=== PATIENT | male | born 1955 | race Caucasian/White ===

== ENCOUNTER 2025-04-22 18:01 | Inpatient (IN) | payer BC, MEDICARE, SELFPAY ==
[2025-04-22] VITALS (20 sets, daily range): BP systolic 108–159; BP diastolic 71–96; BMI 33.9; BMI 33.6
[2025-04-22 13:38] LABS: Hematocrit 43.9 % (39.0-52.0); Hemoglobin 14.8 g/dL (13.0-18.0); Mean Corp Hgb Conc. 33.7 g/dL (33.0-37.0); Mean Corpuscular Volume 84.1 fL (80.0-94.0); Nucleated Red Blood Cells % 0 % (-); Platelet Count 234 10^3/uL (130-400); Red Cell Dist. Width 13.5 % (11.5-14.5)
[2025-04-22 13:58] LABS: ALT (SGPT) 32 U/L (0-50); AST (SGOT) 25 U/L (17-59); Albumin 4.8 g/dl (3.5-5.0); Alkaline Phosphatase 46 U/L (38-126); Blood Urea Nitrogen 18 mg/dl (9-20); Calcium 9.2 mg/dl (8.4-10.2); Carbon Dioxide 24 mmol/L (22-30); Chloride 107 mmol/L (98-107); Glucose 128 mg/dl (70-99); Potassium 4.3 mmol/L (3.5-5.1); Sodium 138 mmol/L (135-145); Total Protein 7.4 g/dl (6.3-8.2); eGFR > 60.00
[2025-04-22 14:11] LABS: Troponin I 0.030 ng/ml
--- NOTE | 2025-04-22 16:25 | CON.CAR ---
Addendum entered and electronically signed by Glen Guevara MD 04/22/25 21:14:
Pleasant 69-year-old man with history of prior PCI admitted now with exertional chest discomfort, nonspecific ST changes and troponin of 0.035. [address] Bautista, had unremarkable echo and stress test earlier this year for symptoms of chest
discomfort. Over the last 2 weeks classic exertional chest discomfort has occurred, with mild persistent discomfort at rest here in the emergency department. Some relief with nitroglycerin.
PMH: CAD, drug-eluting stent mid to distal RCA 2018, hypertension, hyperlipidemia, obstructive sleep apnea, hyperglycemia, remote postoperative pulmonary embolism
Current meds:IV nitroglycerin, IV heparin, aspirin 81 mg a day, carvedilol 3.125 mg twice daily, rosuvastatin 5 mg at bedtime, amlodipine 10 mg a day, losartan 100 mg daily and ezetimibe 3 days a week
Rest of history as below. Reviewed in detail and agree, unless otherwise specified
150/86, pulse 64, respiratory rate 18, afebrile, head neck exam unremarkable, lungs are clear, regular rate and rhythm without murmurs abdomen benign extremities without clubbing cyanosis or edema, distal pulses intact's
ECG sinus rhythm, nonspecific inferolateral ST segment changes, LVH
Hemoglobin 14.8, BUN and creatinine are 18 and 1, glucose 128, troponin 0.035
Impression:
Suspected ACS
CAD status post RCA PCI 2018
Hyperglycemia
Hypertension
Hyperlipidemia
Obstructive sleep apnea
Remote pulmonary embolus
Plan:
He presents with symptoms strongly suggestive of crescendo angina/ACS.
Agree with treatment with IV nitroglycerin and IV heparin. Continue beta-marisol, antihypertensives, aspirin, statin
Given his presentation, best management strategy will likely be referral to the [facility] in the morning. Await echocardiogram, trend troponin and follow EKG.
Original Note:
Consultation
Consultation Request
Date/Time Consultation Requested: 04/22/2025, 1625
Date/Time Consultation Performed: 04/22/2025, 162
Requesting Provider: Dr. Velasquez
Performing Provider: JACK Anders for Dr. Guevara
Reason for Consultation: Chest pain
Medical History
-
Chief Complaint: Chest pain
History of Present Illness:
69-year-old male with past medical history hypertension, hyperlipidemia, prediabetes, CAD status post PCI with GUSTABO to the mid to distal RCA in September 2017 with residual small branch vessel coronary artery disease, sleep apnea, appendectomy
complicated by postop PE 2003, diverticulosis presents to ED today with 2-week history of exertional chest pain. Describes 6 out of 10 chest pain that occurs with activities such as walking up a flight of steps or walking at a fast pace. Pain
radiates through left chest sometimes to left shoulder. No associated symptoms. Pain would resolve with rest. Today after walk he had pain that did not resolve with rest and took 2 sublingual nitroglycerin and presented to [facility].
Currently having 2-3 out of 10 chest pain. 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
ED workup:
Troponin 0.03
BUN/creatinine 18/1.0, NA 138, K4.3, hemoglobin 14.8
EKG: Normal sinus rhythm ST-T wave abnormality inferior leads and V4-V6. When compared to EKG from office visit with Dr. Bautista 12/25/2024, similar ST abnormalities.
Past medical history:
CAD status post PCI/GUSTABO to mid to distal RCA 09/2017, has residual small branch vessel disease
Hypertension
Hyperlipidemia
Sleep apnea on CPAP
Prediabetes
Appendectomy complicated by postop PE in 2003
Diverticulosis
Patient follows with Dr. Jagdish Bautista.
He had exercise nuclear stress test 08/29/2024 that showed normal myocardial perfusion scan with normal wall motion, EF 63%, exercised 9 minutes on Ok protocol.
Echo 09/10/2024: Normal LV/RV function, LVEF 60%, borderline LVH, mild AI trivial TR with mild increase in RV systolic pressure.
Past Medical History
Past Medical History: Other (As above)
Past Surgical History: Other (Appendectomy, cardiac cath, spinal surgery 08/2021, deviated septum 02/2021)
Social History
Tobacco: Non-Smoker
Alcohol: Occasional (Rare)
Personal:
Living: With Family
Employment: Employed
Family History
Family History: Other (Father had heart valve surgery in his 80s. No history of premature CAD)
Allergies / Home Medications
�Medication �Instructions �Recorded �Confirmed �Type
rosuvastatin 5 mg tablet (Crestor) 5 mg PO DAILY 04/22/25 04/22/25 History
Review of Systems
-
History Source: Patient
All other systems: Negative unless noted
Physical Exam
Vital Signs
Temp Pulse Resp BP Pulse Ox
97.8 F 72 18 157/92 97
04/22/25 13:10 04/22/25 13:10 04/22/25 13:10 04/22/25 13:10 04/22/25 13:10
Lab Results
04/22/25 13:28
04/22/25 13:28
Troponin I 0.030 ng/ml 04/22/25 13:28
GEN: No distress, awake, Ox3
HEENT: supple, anicteric, mmm
LUNGS: CTA, no wheezes/rales
CV: Reg, S1/S2, no murmur
ABD: soft, BS+, NT/ND
EXT: No edema
NEURO: Gross non-focal
SKIN: No rash
Impression / Plan
-
PCP:Elizabeth Rowell
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
Previous cardiovascular testing:
Left heart cath 10/19/2017 at [facility]:
PCI with GUSTABO to mid to distal RCA, reducing stenosis from 90% to 0%. 50 to 60% disease in RCA.
LAD 50% proximal to mid stenosis
D2 70% stenosis
Mild disease in other areas
Normal LVEDP
Exercise nuclear stress test 08/29/2024 that showed normal myocardial perfusion scan with normal wall motion, EF 63%, exercised 9 minutes on Ok protocol.
Echo 09/10/2024: Normal LV/RV function, LVEF 60%, borderline LVH, mild AI trivial TR with mild increase in RV systolic pressure.
Plan:
69-year-old male with PMH HTN, hyperlipidemia, prediabetes, CAD status post PCI with GUSTABO to the mid to distal RCA in September 2017 with residual small branch vessel coronary artery disease, sleep apnea on CPAP, appendectomy complicated by postop PE
2003, diverticulosis presents to ED today with 2-week history of exertional left-sided chest pain resolved with rest, sometimes radiates to left shoulder, no associated symptoms Today after walk he had pain that did not resolve with rest and took 2
sublingual nitroglycerin and presented to [facility].
Currently having 2-3 out of 10 chest pain. Initial troponin 0.03
-Admit to IVU
-Trend troponin and EKG
-Received ASA 243 mg in ED
-Start IV heparin
-Start IV nitro and titrate for pain relief
-Keep n.p.o., for possible cath in a.m.
-Check echo
-Continue statin and Zetia, only takes Zetia 3 times a week. Goal LDL less than 55
-Continue prior to admission carvedilol, amlodipine, losartan HCT
-Continue CPAP for obstructive sleep apnea
Discussed with ED staff, patient and
Data Reviewed
-
EKG: Tracing Personally Visualized and interpreted
Labs: Labs Reviewed by me
Old Records: Reviewed
--- NOTE | 2025-04-22 16:32 | ED.GENMED ---
History of Present Illness
<Fredy Velasquez PA-C - Last Filed: 04/22/25 19:12>
General
Chief Complaint: Breathing Problem
Time Seen by Provider: 04/22/25 15:56
History of Present Illness
History of Present Illness:
69-year-old male with history of coronary artery disease status post stent x 1 (2018 at [facility]), hypertension presents to the emergency department for evaluation of exertional chest pain over the past 2 weeks. States that he did not short
distances in the [place] without much pain but if he increases his speed pain will begin. Typically resolves after resting for a few minutes however today it seems to last longer at rest that I previously had. Currently rated 6 out of 10. He did
take nitro x 2 without improvement. Sees cardiology through [facility] states that he had a normal stress test and normal echocardiogram performed earlier this year, I do have results available for the echo that was done in August.
Review of Systems
<Fredy Vleasquez PA-C - Last Filed: 04/22/25 19:12>
Review of Systems
Allergies reviewed?: Yes
All Other Systems: ROS reviewed and negative except as documented in HPI and ROS
Phy Exam
<Fredy Velasquez PA-C - Last Filed: 04/22/25 19:12>
Physical Exam
Physical Exam:
GEN: Well appearing, NAD, WDWN
HEENT: Oral mucosa moist, no scleral icterus
Cardiac: Regular rate and rhythm, no murmur
Lung: No respiratory distress, no tachypnea
MSK: No gross deformity or injuries
Skin: Good color, no pallor or jaundice, no rashes
Neuro: AO x3, moves all extremities freely
Psych: Calm, cooperative
Scores
<Fredy Velasquez PA-C - Last Filed: 04/22/25 19:12>
Heart Failure Risk
Heart Failure Risk Score: Not Applicable
Course
<Fredy Velasquez PA-C - Last Filed: 04/22/25 19:12>
Orders/Labs/Results
Orders:
Orders
04/22/25 13:07
Electrocardiogram (*1) Urgent
Reason for Study: Shortness of Breath
EKG- Treatment ONCE
04/22/25 13:28
CMP [Comprehensive Metabolic Panel] Urgent
Complete Blood Count/With Diff Urgent
Troponin I Urgent
04/22/25 16:15
Nitroglycerin 100 mg/250 ml [Nitroglycerin Premix] 100 mg in 250 ml IV PER PROTOCOL
Initial dose in mcg/min, then titrate:: 20
Titrate to keep:: Chest Pain Free
Titrate by mcg/min:: 5 mcg/min, may increase by 10 mcg/min if dose > 20 mcg/min
Frequency of titrations (minutes):: every 3-5 minutes
Maximum dose in mcg/min:: 200
Begin to taper infusion when:: Remained at goal for 2hrs
Taper by mcg/min:: 5 mcg/min
Frequency of taper (minutes) if patient maintains goal:: 30
Taper to off?: Yes
If infusion off & no longer maintaining goal:: Contact Provider
04/22/25 16:26
CARDIOLOGY CONSULT Urgent
Consulting Provider: Glen Guevara
Was physician already notified: Yes
04/22/25 16:27
Electrocardiogram (*1) Urgent
Reason for Study: Chest Pain
04/22/25 16:28
EKG- Treatment ONCE
04/22/25 16:33
Troponin I Urgent
04/22/25 16:39
Aspirin Chewable [Low Strength Aspirin] 243 mg PO NOW STA
04/22/25 16:47
Heparin 4,000 units IV NOW STA
Nursing to Place Non Medication Order As Directed
Physician Order: PTT 6 hours after initial start of Heparin infusion
Above order entered?: Yes
04/22/25 17:00
Heparin 43842 Units/250 ml 25,000 units in 250 ml IV PER PROTOCOL
Weight to be used for heparin protocol in kilograms (kg):: 116.4
Protocol:: Cardiac Tx/Acute Coronary
PTT Goal Range to be used:: PTT 73 to 111 seconds
Order type:: Initial
INITIAL Infusion Dose (UNITS/KG/hr) & then follow protocol:: 12 units/kg/hr
Infusion Dose in UNITS/hr & then follow protocol (UNITS/hr):: 1,000
INFUSION RATE in mL/hr & then follow protocol (mL/hr):: 10
PTT less than or equal to 64 seconds:: Increase rate by 200 units/hr (+ 2 mL/hr)
PTT 64.1 to 72.9 seconds:: Increase rate by 100 units/hr (+ 1 mL/hr)
PTT 73 to 111 seconds:: Target Range. No change in rate.
PTT 111.1 to 130.9 seconds:: Decrease rate by 100 units/hr (- 1 mL/hr)
PTT 131 to 199.9 seconds:: HOLD for 1 hr. Then decrease rate by 200 units/hr (- 2 mL/hr)
PTT greater than or equal to 200 seconds:: HOLD for 2 hrs & Notify Provider. Then decrease by 200 units/hr (-
2 mL/hr)
Lab follow-up:: Each change, PTT q6h until 2 consecutive are therapeutic. Then PTT
daily.
04/22/25 17:04
PTT Urgent
Comment: Obtain baseline before beginning heparin infusion if not already collected
04/22/25 17:17
Echo 2D MMode Color/Doppler Routine
Reason for Study: CAD, elevated trop
04/22/25 17:31
Admit/Transfer Patient As Directed
Co-Sign Provider:
Level of Care: Inpatient admission
Assign to:: IVU
Physician / Group: Deacony
Diagnosis: Chest Pain
Reason for Hospitalization: heparin drip, nitro drip
Expected length of stay greater than two midnights?: Yes
ELOS- Estimated Length of Stay in days: 3
I certify the patient meets the requirements for IP care: Yes
PRN Pain Medication Management As Directed
May give lesser potent ordered pain med per pt: Yes
preference::
Protocol:: Medication orders for pain may be administered in a
manner that supports deferring to patient preference
when the pt is:
- Requesting an ordered lesser potent pain medication.
Least to most potent pain medications are defined
as: acetaminophen < NSAID < tramadol < opioids
(morphine, oxycodone, hydromorphone).
- Requesting a lesser dose of the same medication IF
ORDERED.
- Requesting a less intrusive route of administration
if both routes are prescribed by the provider (PO <
IV).
04/22/25 17:32
Code Status As Directed
Resuscitation Status: Full Code
04/22/25 22:30
Troponin I Q6H
04/22/25 23:30
PTT Urgent
Comment: 6hour ptt
04/23/25 04:30
Troponin I Q6H
04/23/25 Breakfast
NPO
Allow oral meds: Yes
Allow clear liquids: No
04/23/25 10:30
Troponin I Q6H
Abnormal Lab Results
04/22/25 04/22/25
13:28 16:33
Glucose 128 H mg/dl
(70-99)
Troponin I 0.035 H* ng/ml
04/22/25 13:28
04/22/25 13:28
Vital Signs
Initial and Last Documented VS:
Initial Vital Signs
Temp Pulse Resp BP Pulse Ox
97.8 F 72 18 157/92 97
04/22/25 13:10 04/22/25 13:10 04/22/25 13:10 04/22/25 13:10 04/22/25 13:10
Last Documented Vital Signs
Temp Pulse Resp BP Pulse Ox
97.8 F 57 18 139/87 94
04/22/25 13:10 04/22/25 18:15 04/22/25 17:30 04/22/25 18:06 04/22/25 17:15
<Ronnie Blount, DO - Last Filed: 04/22/25 16:55>
Orders/Labs/Results
Orders:
Orders
04/22/25 13:07
Electrocardiogram (*1) Urgent
Reason for Study: Shortness of Breath
EKG- Treatment ONCE
04/22/25 13:28
CMP [Comprehensive Metabolic Panel] Urgent
Complete Blood Count/With Diff Urgent
Troponin I Urgent
04/22/25 16:15
Nitroglycerin 100 mg/250 ml [Nitroglycerin Premix] 100 mg in 250 ml IV PER PROTOCOL
Initial dose in mcg/min, then titrate:: 20
Titrate to keep:: Chest Pain Free
Titrate by mcg/min:: 5 mcg/min, may increase by 10 mcg/min if dose > 20 mcg/min
Frequency of titrations (minutes):: every 3-5 minutes
Maximum dose in mcg/min:: 200
Begin to taper infusion when:: Remained at goal for 2hrs
Taper by mcg/min:: 5 mcg/min
Frequency of taper (minutes) if patient maintains goal:: 30
Taper to off?: Yes
If infusion off & no longer maintaining goal:: Contact Provider
04/22/25 16:26
CARDIOLOGY CONSULT Urgent
Consulting Provider: Glen Guevara
Was physician already notified: Yes
04/22/25 16:27
Electrocardiogram (*1) Urgent
Reason for Study: Chest Pain
04/22/25 16:28
EKG- Treatment ONCE
04/22/25 16:33
Troponin I Urgent
04/22/25 16:39
Aspirin Chewable [Low Strength Aspirin] 243 mg PO NOW STA
04/22/25 16:47
Heparin 4,000 units IV NOW STA
Nursing to Place Non Medication Order As Directed
Physician Order: PTT 6 hours after initial start of Heparin infusion
Above order entered?: Yes
04/22/25 17:00
Heparin [id number] Units/250 ml 25,000 units in 250 ml IV PER PROTOCOL
Weight to be used for heparin protocol in kilograms (kg):: 116.4
Protocol:: Cardiac Tx/Acute Coronary
PTT Goal Range to be used:: PTT 73 to 111 seconds
Order type:: Initial
INITIAL Infusion Dose (UNITS/KG/hr) & then follow protocol:: 12 units/kg/hr
Infusion Dose in UNITS/hr & then follow protocol (UNITS/hr):: 1,000
INFUSION RATE in mL/hr & then follow protocol (mL/hr):: 10
PTT less than or equal to 64 seconds:: Increase rate by 200 units/hr (+ 2 mL/hr)
PTT 64.1 to 72.9 seconds:: Increase rate by 100 units/hr (+ 1 mL/hr)
PTT 73 to 111 seconds:: Target Range. No change in rate.
PTT 111.1 to 130.9 seconds:: Decrease rate by 100 units/hr (- 1 mL/hr)
PTT 131 to 199.9 seconds:: HOLD for 1 hr. Then decrease rate by 200 units/hr (- 2 mL/hr)
PTT greater than or equal to 200 seconds:: HOLD for 2 hrs & Notify Provider. Then decrease by 200 units/hr (-
2 mL/hr)
Lab follow-up:: Each change, PTT q6h until 2 consecutive are therapeutic. Then PTT
daily.
04/22/25 17:04
PTT Urgent
Comment: Obtain baseline before beginning heparin infusion if not already collected
04/22/25 17:17
Echo 2D MMode Color/Doppler Routine
Reason for Study: CAD, elevated trop
04/22/25 17:31
Admit/Transfer Patient As Directed
Co-Sign Provider:
Level of Care: Inpatient admission
Assign to:: IVU
Physician / Group: Htay
Diagnosis: Chest Pain
Reason for Hospitalization: heparin drip, nitro drip
Expected length of stay greater than two midnights?: Yes
ELOS- Estimated Length of Stay in days: 3
I certify the patient meets the requirements for IP care: Yes
PRN Pain Medication Management As Directed
May give lesser potent ordered pain med per pt: Yes
preference::
Protocol:: Medication orders for pain may be administered in a
manner that supports deferring to patient preference
when the pt is:
- Requesting an ordered lesser potent pain medication.
Least to most potent pain medications are defined
as: acetaminophen < NSAID < tramadol < opioids
(morphine, oxycodone, hydromorphone).
- Requesting a lesser dose of the same medication IF
ORDERED.
- Requesting a less intrusive route of administration
if both routes are prescribed by the provider (PO <
IV).
04/22/25 17:32
Code Status As Directed
Resuscitation Status: Full Code
04/22/25 22:30
Troponin I Q6H
04/22/25 23:30
PTT Urgent
Comment: 6hour ptt
04/23/25 04:30
Troponin I Q6H
04/23/25 Breakfast
NPO
Allow oral meds: Yes
Allow clear liquids: No
04/23/25 10:30
Troponin I Q6H
Abnormal Lab Results
04/22/25 04/22/25
13:28 16:33
Glucose 128 H mg/dl
(70-99)
Troponin I 0.035 H* ng/ml
04/22/25 13:28
04/22/25 13:28
Vital Signs
Initial and Last Documented VS:
Initial Vital Signs
Temp Pulse Resp BP Pulse Ox
97.8 F 72 18 157/92 97
04/22/25 13:10 04/22/25 13:10 04/22/25 13:10 04/22/25 13:10 04/22/25 13:10
Last Documented Vital Signs
Temp Pulse Resp BP Pulse Ox
97.8 F 57 18 139/87 94
04/22/25 13:10 04/22/25 18:15 04/22/25 17:30 04/22/25 18:06 04/22/25 17:15
<Fredy Velasquez PA-C - Last Filed: 04/22/25 19:12>
MDM/Problems Addressed
MDM/Problems Addressed:
Patient's clinical history is consistent with stable angina although progressing in severity, he was seen in consultation by cardiology who agrees with admission for further ischemic workup, started on nitro and heparin in the emergency department
<Fredy Velasquez PA-C - Last Filed: 04/22/25 19:12>
Comment
Comment:
EKG independently interpreted by me shows normal sinus rhythm with lateral ST depressions and T wave inversions comparable to past tracings
*Pulse Oximetry
SaO2: 98
Oxygen Mode of Delivery: Room air
Patient hypoxic: no
*Critical Care Note
comment:
Critical care time: 32 minutes
Critical care time was exclusive of: Separately billable procedures, treating other patients, and teaching time
Critical care was necessary to treat or prevent imminent or life-threatening deterioration of the following conditions: ACS
Critical care time spent personally by me on the following activities:
[x] Review of old charts
[x] Obtaining history from patient or surrogate
[x] Ordering and review of the laboratory studies
[x] Ordering and review of radiographic studies
[x] Ordering and performing treatments and interventions
[x] Patient patient's response to treatment
[x] Development of treatment plan with patient or surrogate
<Ronnie Blount DO - Last Filed: 04/22/25 16:55>
*Critical Care Note
Total Time (30-74mins, 75-104mins- exclusive of procedures): 32
ED Attending Note
<Fredy Velasquez PA-C - Last Filed: 04/22/25 19:12>
-
Portions of this chart may have been created with voice recognition software.� Occasional wrong word or��sound alike� substitutions may have occurred due to the inherent limitations of voice recognition software.
<Ronnie Blount DO - Last Filed: 04/22/25 16:55>
ED Attending Note
Patient seen and examined by attending physician: Yes
I performed the substantive portion of visit, reviewed & personally made and approve the management plan that is documented in note by myself or SHANNON.: Yes
ED Attending Note:
Seen with PA examined independently with assessment plan 69-year-old male presents with ACS symptoms, EKG noted inferolateral T wave inversions, plan will be aspirin nitrates unfractionated heparin admission
Discharge Plan
Departure
Patient Disposition: Admit
Date of Disposition: 04/22/25
Time of Disposition: 16:46
Admit to: IVU
Presentation/result/management discussed w/ accepting MD/DO: Hospitalist
Discharge Problem:
Angina pectoris
Interventions
Interventions:
*Risk Screen - Suicide Last Done: 04/22/25 13:14
*General Assessment Last Done: 04/22/25 16:30
*Neglect/Abuse Screening Last Done: 04/22/25 13:14
*ED- Fall Risk Assessment Last Done: 04/22/25 16:30
*ED COVID-19 Vaccine History Last Done: 04/22/25 16:30
*ED Influenza Vaccine History Last Done: 04/22/25 16:30
ED- Cardiac Assessment Last Done: 04/22/25 16:30
ED- Pulmonary Assessment Last Done: 04/22/25 16:30
[2025-04-22] MEDS: LOW STRENGTH ASPIRIN 243 MG PO (16:43)
[2025-04-22] MEDS: NITROGLYCERIN PREMIX 250 IV (16:55)
--- NOTE | 2025-04-22 17:17 | HPS.HSE ---
Family Physician
-
Family Physician: NOT KNOW UNKNOWN - PT DOES
Chief Complaint
-
Chest Pain
History of Present Illness
Patient is a 69 y/o male past medical history of CAD, HTN, Hyperlipidemia, PE and JUAN who presents with chest pain. Patient reports intermittent episodes of chest pain over the past few weeks. He reports symptoms occurred when walking up the
stairs but would resolve with rest. Today patient developed pain while walking around his house. He describes chest pressure / tightness with associated shortness of breath. He reports symptoms are similar to previous episodes but notes this
episode was much more intense in nature and it did not go away with rest prompting him to come to the emergency department for evaluation.
Medical History
Past Medical History
Past Medical History: Reports Other
Additional Past Medical History:
Coronary Artery Disease s/p RCA stent 2018
Essential Hypertension
Hyperlipidemia
Provoked Pulmonary Embolism following appendectomy
Obstructive Sleep Apnea
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
Past Surgical History: Reports Orthopedic and Other
Additional Past Surgical History:
Appendectomy
Hernia Repair
Social History
Tobacco: Non-smoker
Alcohol: Occasional
Family History
Family History: Not pertinent
Allergies / Home Medications
Allergies reflects when Allergies were last updated in [facility].
Home Medications with original date entered in [facility]
Allergy/Medication List:
Allergies
Allergy/AdvReac Type Severity Reaction Status Date / Time
No Known Allergies Allergy Unverified 04/22/25 16:33
Home Medications
amlodipine 10 mg tablet (Norvasc) 10 mg PO DAILY 04/22/25
aspirin 81 mg tablet,delayed release 81 mg PO DAILY 04/22/25
carvedilol 3.125 mg tablet (Coreg) 3.125 mg PO BID 04/22/25
ezetimibe 10 mg tablet 10 mg PO MOWEFR 04/22/25
losartan 100 mg-hydrochlorothiazide 12.5 mg tablet 1 tab PO DAILY 04/22/25
nitroglycerin 0.4 mg sublingual tablet (Nitrostat) 0.4 mg sublingual [id number] PRN chest pains 04/22/25
rosuvastatin 5 mg tablet (Crestor) 5 mg PO QPM 04/22/25
Review of Systems
-
A 12 point ROS was completed and negative except as noted: Yes
Constitutional: Denies Fever
Respiratory: Denies Cough or Trouble Breathing
Cardiac: Reports Chest Pain
Physical Exam
Vital Signs
Vital Signs
Temp Pulse Resp BP Pulse Ox
97.8 F 57 16 142/77 98
04/22/25 13:10 04/22/25 16:15 04/22/25 16:15 04/22/25 16:00 04/22/25 16:34
Physical Exam
General: Comfortable and Conversant
HEENT: Anicteric and Moist mucous membranes
Respiratory: Clear and Non Labored Respirations
Cardiac: S1/S2 and Regular Rhythm
GI: Soft and Non Tender
Rectal: Deferred by Provider
Musculoskeletal: No Clubbing, No Cyanosis and No Edema
Skin: Warm and Dry
Neuro: Awake, Alert, Oriented and Nonfocal/grossly intact
Psych: Calm
Laboratory Results
-
04/22/25 13:28
04/22/25 13:28
Laboratory Results
Total Bilirubin 0.6 mg/dl (0.2-1.3) 04/22/25 13:28
AST 25 U/L (17-59) 04/22/25 13:28
ALT 32 U/L (0-50) 04/22/25 13:28
Alkaline Phosphatase 46 U/L (38-126) 04/22/25 13:28
Troponin I 0.030 ng/ml 04/22/25 13:28
Data Reviewed
-
Lab Data: Labs Reviewed by me
Impression/Plan
-
Unstable Angina / NSTEMI
-Consult Cardiology
-Continue aspirin
-Continue heparin drip
-Continue nitro drip
-NPO after midnight for likely cardiac cath in AM
-Check HgbA1c and Lipid Panel
Essential Hypertension
-Continue amlodipine, carvedilol, and losartan
Hyperlipidemia
-Continue rosuvastatin and ezetimibe
Obstructive Sleep Apnea
-Family is unable to bring CPAP from home. Offered use of hospital machine which he declined
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
-Encourage weight loss
DVT proph: Heparin Drip
Code Status: Full Code
[2025-04-22 17:22] LABS: Troponin I 0.035 ng/ml
[2025-04-22 17:22] LABS: APTT 29.2 Sec (23.4-35.0)
[2025-04-22] MEDS: HEPARIN 4000 UNITS IV (17:30)
[2025-04-22] MEDS: HEPARIN 25000 UNITS/250 ML IV (17:33)
--- NOTE | 2025-04-22 17:35 | W.PN.UPDATE ---
Update Note
Progress Note Update
This note serves as an addendum to the H&P by correctional supervisor lieutenant Jona CLAIRE
HPI
69M HX HTN, HLD, CAD post stent x 1 (2018 at [facility]) seen at ER
- for evaluation of exertional chest pain over the past 2 weeks.
- no SoB
- CP increases speed of walking
- Typically resolves after resting for a few minutes however today it seems to last longer at rest that I previously
- Currently rated 6 out of 10. He did take nitro x 2 without improvement.
- Sees cardiology through [facility] states that he had a normal stress test and normal echocardiogram performed earlier this year
PHX; see above
Relevant VS
Temp Pulse Resp BP Pulse Ox
97.8 F 57 16 142/77 98
04/22/25 13:10 04/22/25 16:15 04/22/25 16:15 04/22/25 16:00 04/22/25 16:34
PE
Gen: NAD
HEENT: anicteric
Neck: supple
Lungs:CTA
Cor:RRR S1 S2
Abdomen:�soft benign
HOT STRIP MILL SUPERVISOR: NFND
MS: no edema
Psych: appropriate
Relevant Data
04/22/25 04/22/25
13:28 16:33
WBC 7.0
Hgb 14.8
Plt Count 234
Creatinine 1.0
eGFR > 60.00
Troponin I 0.030 0.035 H*
EKG
NORMAL SINUS RHYTHM
T WAVE ABNORMALITY, CONSIDER INFERIOR ISCHEMIA
ABNORMAL ECG
NO PREVIOUS ECGS AVAILABLE
Confirmed by DIANE TOWNSEND, [facility] ([id number]) on 04/22/2025 4:33:57 PM
NO PRIOR hospitalist admission:
ASSESSMENT & PLAN
ACS - [place] evolving NSTEMI
Decrescendo CP but still there - s/p baby ASA at home topped up ASA 243 at ER for loading
- agree with Heparin gt and NTG gtt
- Trend TPNI
- NPO after MN
- Cardiac cath in AM
- DCA card consulted
HX CAD s/p stent
- as above
- c/w Rusuvastatin
Benign HTN
- c/w Losartan
- Hold HCTZ
Class I Obesity
DVT Px: heparin gtt
Code: Full
IVU
[2025-04-22] MEDS: COREG 3.125 MG PO (21:04)
[2025-04-22] MEDS: CRESTOR 5 MG PO (21:06)
[2025-04-22] MEDS: ZETIA 10 MG PO (21:06)
--- NOTE | 2025-04-22 22:09 | PTCARENOTE ---
Received patient from ED. SR on the monitor, HR in the 70s. 2/10 chest pain, dull. Alert and oriented, in room. VSS on room air. Heparin and nitro infusing as per order, see documentation. Heparin infusing through right forearm when received
from ED, arm above IV is swollen but painless, IV team notified and came to assess. IV removed. Oriented pt to unit and discussed plan of care, pt verbalizes understanding. NPO at midnight. Head CT order from ED for blurry vision, pt refusing test,
reports no more 'floaters'. Educated pt on importance of Head CT, pt verbalizes understanding and continues to refuse. Ordering provider made aware. Call alexander within reach.
[2025-04-22] MEDS: TYLENOL 650 MG PO (22:29)
--- NOTE | 2025-04-22 22:52 | PTCARENOTE ---
Patient rang call alexander complaining of 7/10 chest pain. BP 143/91, Nitro increased as per protocol, see documentation. EKG and next troponin obtained. 2L nasal cannula. Pt now with 1/10 chest pain but headache, PRN Tylenol administered as per order,
see MAR. HOUSEKEEPING MANAGER Nikunj June made aware. BP now 109/71. Call alexander within reach.
[2025-04-22 22:57] LABS: APTT 39.0 Sec (23.4-35.0)
[2025-04-22 23:12] LABS: Troponin I 0.036 ng/ml
[2025-04-23] VITALS (41 sets, daily range): BP systolic 82–136; BP diastolic 48–85; BMI 33.6
[2025-04-23 03:44] LABS: Glucose - Point of Care 99 mg/dl (70-99)
[2025-04-23 04:20] LABS: Hematocrit 43.4 % (39.0-52.0); Hemoglobin 14.6 g/dL (13.0-18.0); Mean Corp Hgb Conc. 33.6 g/dL (33.0-37.0); Mean Corpuscular Volume 84.8 fL (80.0-94.0); Platelet Count 231 10^3/uL (130-400); Red Cell Dist. Width 13.7 % (11.5-14.5)
[2025-04-23 04:30] LABS: Blood Urea Nitrogen 17 mg/dl (9-20); Calcium 9.2 mg/dl (8.4-10.2); Carbon Dioxide 24 mmol/L (22-30); Chloride 109 mmol/L (98-107); Estimated Creatinine Clearance 93 ml/min; Glucose 100 mg/dl (70-99); HDL Cholesterol 48 mg/dl; LDL Cholesterol, Calculated 78 mg/dl; Potassium 4.2 mmol/L (3.5-5.1); Sodium 140 mmol/L (135-145); Very Low Density Lipoprotein 21 mg/dl (0-30); eGFR > 60.00
--- NOTE | 2025-04-23 04:34 | PTCARENOTE ---
Patient rang call alexander and complained of feeling short of breath and 'shaky'. Sat pt up in bed and increased O2 from 2 to 3 L nasal cannula, 97%. RR 22, 97.4F, HR in the 60s, BP 127/85. GRAPHICS EDITOR Nikunj June made aware. Blood sugar 99. CXR ordered and obtained
and morning labs drawn. Patient no longer feeling shaky but still complaining of being mildly short of breath. Call alexander within reach
[2025-04-23 04:42] LABS: Troponin I 0.033 ng/ml
[2025-04-23 05:44] LABS: APTT 55.7 Sec (23.4-35.0)
--- NOTE | 2025-04-23 08:00 | PTCARENOTE ---
Assumed care of pt from prev nsg shift; Pt is AAOx3, w/spouse at bedside. Pt is German speaking but understands & speaks Somali as well. Pt w/no c/o CP or SOB. Pt's VSS w/HR in the 50's & BP 107/73 this AM. Pt is SB/SR w/occas PVC's on telemetry
monitoring. Pt w/Heparin IV & IV Nitro infusing through a patent IV line as ordered. Plan of care discussed w/pt & spouse. pt NPO for poss cardiac cath today. Pt w/call alexander within reach & no addtl needs at this time.
[2025-04-23 09:00] LABS: Glycohemoglobin (HgbA1c) 6.1 % (4.0-5.6)
--- NOTE | 2025-04-23 09:47 | W.PN.HOSP.TC ---
Today's Communication/Plan
-
see plan
Assessment / Plan
Assessment / Plan
Gen: NAD, AAOx3.
Eyes: EOMI, PERRLA, no scleral icterus.
Neck: supple.
CV: RRR, +S1/S2, no m/r/g.
Resp: CTAB, no rales, wheezes, or rhonchi.
Abd: +BS, soft, NT, ND
Skin: No rashes.
Neuro: CN 2-12 intact, non-focal.
Psych: Normal mood and affect.
Unstable Angina/NSTEMI
-Consult Cardiology
-Continue aspirin
-Continue heparin drip
-Continue nitro drip
-NPO for cardiac cath (discussed with cards)
'floaters:'
-resolved
-despite my insistence pt refusing CT brain
Other problems:
Prediabetes, a1c 6.1%
Essential HTN: cont Norvasc/BB/ARB
HLD: cont statin/Zetia
JUAN: pt declined use of hospital's CPAP
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
FULL/Heparin gtt
Anticipated Discharge: Within 24 hours
Subjective/Interval History
-
Date of Service: April 23, 2025
CP remains but has improved.
Objective Data
-
Labs:
Laboratory Results
04/22/25 04/23/25 04/23/25
22:38 03:54 05:24
WBC 7.9
Hgb 14.6
Hct 43.4
Plt Count 231
APTT 39.0 H 55.7 H
Sodium 140
Potassium 4.2
Chloride 109 H
Carbon Dioxide 24
BUN 17
Creatinine 1.0
Glucose 100 H
Calcium 9.2
04/23/25
12:10
WBC
Hgb
Hct
Plt Count
APTT Pending
Sodium
Potassium
Chloride
Carbon Dioxide
BUN
Creatinine
Glucose
Calcium
Vital Signs:
Vital Signs
Temp Pulse Resp BP Pulse Ox
98.0 F 76 18 107/73 92
04/23/25 06:52 04/23/25 08:15 04/23/25 06:52 04/23/25 07:15 04/23/25 08:15
[2025-04-23] MEDS: ASPIR LOW (ENTERIC COATED) 81 MG PO (10:28)
[2025-04-23] MEDS: NORVASC PO (10:30)
[2025-04-23] MEDS: COREG PO (10:31)
[2025-04-23] MEDS: COZAAR 100 MG PO (10:32)
--- NOTE | 2025-04-23 10:56 | CM ---
Chart reviewed. Patient is independent of ADLS, lives with his in a 2 STH, 3 AMBAR, 0 DME. Plan is for the patient to return home. CM to follow
[2025-04-23 12:23] LABS: APTT 55.1 Sec (23.4-35.0)
[2025-04-23] MEDS: HEPARIN 25000 UNITS/250 ML IV (12:41)
[2025-04-23 18:26] LABS: ACT-LR - POC 271 Seconds (116-155)
[2025-04-23 18:39] LABS: ACT-LR - POC 326 Seconds (116-155)
[2025-04-23 19:29] LABS: ACT-LR - POC 277 Seconds (116-155)
[2025-04-23 19:46] LABS: ACT-LR - POC 282 Seconds (116-155)
--- NOTE | 2025-04-23 19:53 | ITS.CL.CATH ---
Manager Card - Catheterization
Cardiac Catheterization
Procedure Report:
LEFT HEART CATHETERIZATION AND CORONARY INTERVENTION
Date of Procedure: April 23, 2025
Referring: Mei Ventura
PROCEDURES:
1. Left heart catheterization, coronary angiogram.
2. Moderate sedation.
3. IV L shockwave with 3.5 mm shockwave balloon.
4. Successful percutaneous coronary artery intervention of LAD heavily calcified 90% mid RCA stenosis with one 3.0 x 30 mm Medtronic [place] frontier drug-eluting stent, postdilated using IVUS guidance with a 3.5 mm NC balloon at high pressures with
an excellent angiographic and IVUS based result.
5. Intravascular ultrasound (IVUS).
INDICATION: Concern for NSTEMI
ACCESS: Right radial artery, 6Fr. sheath, under US guidance.
HEMODYNAMICS : (mmHg)
AO (s/d) : 111/73
LVEDP : 12
No significant gradient across the aortic valve to suggest aortic stenosis.
CORONARY FINDINGS
Dominance: Right
Left Main Trunk (LMT): Large caliber vessel that gives rise to the LAD and LCx branches and is free of angiographic disease.
Left Anterior Descending Artery (LAD): Large caliber vessel that gives off 2 major diagonal branches as it courses along the anterior inter-ventricular groove before wrapping around the cardiac apex. Mid LAD has diffuse up to 50 to 60% stenosis
spanning across D2. Ostial D2 which is a medium caliber vessel has 60 to 70% stenosis. D1 is a very small caliber vessel.
Left Circumflex Artery (LCx): Large caliber vessel that gives off 3 major obtuse marginal (OM) branches as it courses along the atrio-ventricular (AV) groove. OM1 is a small to medium caliber vessel with ostial to proximal 60 to 70% stenosis. OM
2 is a very small caliber vessel. OM 3 is a small to medium caliber vessel with minimal luminal irregularities.
Right Coronary Artery (RCA): Large caliber dominant vessel that gives rise to the posterior descending artery (RPDA) and postero-lateral ventricular (RPLV) branches distally. Mid RCA has a hazy heavily calcified tubular 90% stenosis which was
intervened upon as noted below. Distal RPLB branches have 60 to 70% stenosis but are small in caliber.
CORONARY INTERVENTION: Additional heparin was given to maintain a therapeutic ACT throughout the case. A 6 [place] 0.75 guide was utilized to engage the RCA selectively. We advanced a 190 cm 0.014 run-through wire into the distal RCA but had
trouble getting it into the RPDA. We attempted multiple balloons at this point however could not cross with a 2.5 mm balloon. At this point as a khushbu wire to get more wire purchase to be introduced a second 190 cm 0.014 whisper wire which we were
able to carefully navigate across the mid RCA stenosis into the RPDA. With the support over the whisper wire we started serially dilating the lesion using a 2.0 mm balloon with some expansion but still not full expansion. Given the significant
degree of calcium present there we decided to shockwave with a 3.5 mm shockwave balloon after serially dilating initially with semicompliant balloons. We delivered all 12 pulses over this lesion and further predilated using a 3.5 mm NC balloon with
full expansion. We subsequently stented the lesion using a 3.0 x 30 mm Medtronic Pancho frontier drug-eluting stent and postdilated using IVUS guidance with a 3.5 mm NC balloon at high pressures with an excellent angiographic and IVUS based result.
Patient tolerated the procedure well with no acute complications. He was loaded with ticagrelor 180 mg at the end of the case.
SEDATION: 67 minutes of procedural sedation was utilized. IV Midazolam and IV Fentanyl were administered. An independent medical assistant ob gyn was present to assist with and help manage the patient's level of consciousness and physiologic status.
RADIATION SUMMARY: Fluoro Time (min): 29.0, Dose (mGy): 2347.05, DAP (Gy.cm2) : 148.77
Closure Device: There were no immediate intra-procedural complications. The sheath was pulled in the corn lab technician and a vascular-band applied to the right wrist for radial artery hemostasis using the patent hemostasis technique.
CONCLUSIONS
1. Successful percutaneous coronary artery intervention of LAD heavily calcified 90% mid RCA stenosis with one 3.0 x 30 mm Medtronic [place] frontier drug-eluting stent, postdilated using IVUS guidance with a 3.5 mm NC balloon at high pressures with an
excellent angiographic and IVUS based result.
2. LVEDP of 12 mmHg.
RECOMMENDATIONS
1. Wean radial band per protocol. Monitor right hand perfusion and for bleeding from the radial site following removal of the vascular-band following trans-radial access.
2. Continue aggressive medical therapy and risk factor modification for secondary CAD prevention.
3. Continue ASA 81 mg daily for life.
4. Continue Brilinta for at least 12 months of uninterrupted dual anti-platelet therapy given drug-eluting stent (GUSTABO) implantation to mitigate the risk of stent thrombosis. This is not to be stopped for any reason without the guidance of a
hand box coverer.
5. Hydrate with normal saline to mitigate the risk of contrast-induced acute kidney injury.
6. Referral for outpatient cardiac rehab.
7. Follow-up with Dr. Jagdish Bautista
Nina Goldberg MD, [facility], [facility]
Copy to: Mei Ventura and Jagdish Bautista
[2025-04-23] MEDS: COREG 3.125 MG PO (20:20)
[2025-04-23] MEDS: CRESTOR 5 MG PO (20:20)
--- NOTE | 2025-04-23 20:38 | PTCARENOTE ---
Received report and patient from slab lifting engineer. SR on the monitor, HR in the 80s. R radial band in place, 92% in right hand, r radial pulse palpable. Nitro running as per protocol, see documentation. in room. No complaints from pt at this time, call
alexander within reach.
[2025-04-23] MEDS: TYLENOL 650 MG PO (22:22)
[2025-04-24] VITALS (18 sets, daily range): BP systolic 86–135; BP diastolic 41–92
[2025-04-24 04:34] LABS: Hematocrit 38.5 % (39.0-52.0); Hemoglobin 13.4 g/dL (13.0-18.0); Mean Corp Hgb Conc. 34.8 g/dL (33.0-37.0); Mean Corpuscular Volume 84.6 fL (80.0-94.0); Platelet Count 221 10^3/uL (130-400); Red Cell Dist. Width 13.6 % (11.5-14.5)
--- NOTE | 2025-04-24 04:58 | PTCARENOTE ---
Patient rang call alexander complaining of 1/10 chest pain. BP 118/71. No other symptoms. Nitro increased as per protocol, see documentation.
[2025-04-24 08:44] LABS: ACT-LR - POC > 397 Seconds (116-155)
[2025-04-24] MEDS: COREG 3.125 MG PO (09:37)
[2025-04-24] MEDS: ASPIR LOW (ENTERIC COATED) 81 MG PO (09:37)
[2025-04-24] MEDS: COZAAR 100 MG PO (09:37)
[2025-04-24] MEDS: BRILINTA 90 MG PO (09:37)
[2025-04-24] MEDS: NORVASC 10 MG PO (09:37)
--- NOTE | 2025-04-24 09:37 | W.PN.HOSP.TC ---
Addendum entered and electronically signed by Oni Mckeon MD 04/24/25 10:11:
Total time spent on d/c = 34 min. This included today's physical exam, progress note, review of laboratory and diagnostic data, preparation of discharge documents and prescriptions, and discussions about the pt's hospital course and discharge plan
with the patient and other medical office receptionist assistant involved in the patient's care.
Original Note:
Today's Communication/Plan
-
see plan
Assessment / Plan
Assessment / Plan
Gen: NAD, AAOx3.
Eyes: EOMI, PERRLA, no scleral icterus.
Neck: supple.
CV: remains RRR, +S1/S2, no m/r/g.
Resp: remains CTAB, no rales, wheezes, or rhonchi.
Abd: remains +BS, soft, NT, ND
Skin: No rashes.
Neuro: CN 2-12 intact, non-focal.
Psych: Normal mood and affect.
Cardiac cath 04/23:
1. Successful percutaneous coronary artery intervention of LAD heavily calcified 90% mid RCA stenosis with one 3.0 x 30 mm Medtronic Panch[place] frontier drug-eluting stent, postdilated using IVUS guidance with a 3.5 mm NC balloon at high pressures with an
excellent angiographic and IVUS based result.
2. LVEDP of 12 mmHg.
Unstable Angina/NSTEMI/ACS:
-was on heparin/nitro gtts prior to cath
-trop peaked at 0.036
-cath above, LAD GUSTABO placed
-Continue ASA/BB/statin/Brilinta
'floaters:'
-resolved
-pt refusing CT brain
Other problems:
Prediabetes, a1c 6.1%
Essential HTN: cont Norvasc/BB/ARB
HLD: cont statin/Zetia
JUAN: pt declined use of hospital's CPAP
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
FULL/ambulation, likely d/c today
Plan to d/c today if OK with cards.
Anticipated Discharge: Today
Subjective/Interval History
-
Date of Service: April 24, 2025
Denies CP. No new complaints.
Objective Data
-
Labs:
Laboratory Results
04/23/25 04/24/25
18:50 04:06
WBC 9.1
Hgb 13.4
Hct 38.5 L
Plt Count 221
APTT Cancelled
Vital Signs:
Vital Signs
Temp Pulse Resp BP Pulse Ox
98.6 F 56 20 102/69 92
04/24/25 06:53 04/24/25 07:30 04/24/25 06:53 04/24/25 07:30 04/24/25 06:53
I&O
04/23/25 04/24/25 04/25/25
06:59 06:59 06:59
Intake Total
Balance
--- NOTE | 2025-04-24 09:39 | W.PN.CARDCBS ---
Addendum entered and electronically signed by Nina Goldberg MD 04/24/25 11:28:
I saw and examined the patient.
The Hot Dog Vender's note was reviewed and I agree with the note.
Comment: Overall patient is doing well post PCI. He denies any new neurologic symptoms. He had a headache previously related to nitroglycerin however he has not had any since the procedure yesterday. No blurry vision or floaters. Right radial
access site without any issues. He has been ambulating within his room without any difficulty.
On exam patient is morbidly obese, well-appearing, no acute distress, awake, alert and oriented x 3, normal carotid upstroke, no carotid bruits, no JVD, lungs are clear to auscultation bilaterally, regular rate, normal S1 and S2, no murmurs, rubs or
gallops, abdomen is obese, soft, nontender, nondistended with active bowel sounds, right radial access site with dressing in place without evidence of hematoma or bruit, warm extremities without significant edema.
Vital signs and lab work reviewed.
Recommendations:
1. In the setting of acute coronary syndrome patient underwent a successful percutaneous coronary artery intervention of a heavily calcified 85% hazy mid RCA stenosis requiring IV L shockwave with an excellent angiographic and IVUS based result
with a 3.5 x 30 mm Medtronic Pancho frontier drug-eluting stent.
2. Discussed uninterrupted dual antiplatelet therapy with daily baby aspirin and Brilinta for at least 1 year along with high intensity statin with LDL goal of less than 55 and beta-marisol as tolerated. Educated on importance of not missing any
doses or stopping medications without discussion with his custom grinder.
3. Given moderate coronary artery disease in his LAD we will discuss with outpatient custom grinder in regards to close monitoring based on symptoms versus consideration for outpatient stress test versus IFR guided intervention.
4. Optimization of secondary cardiovascular risk factors.
5. Outpatient referral for cardiac rehab.
6. Emphasize importance of a heart healthy Mediterranean diet with increase in activity with overall goal for weight loss.
7. Answered all questions patient and had at bedside in extensive detail.
Also discussed with hospitalist regarding order for stat head CT without clear explanation from overnight given no new neurologic symptoms and we agree that there is no indication for this currently.
Patient is stable for discharge otherwise.
Nina Goldberg MD, [facility], [facility]
Total time spent: 36 minutes
Original Note:
Today's Communication / Plan
-
Status post RCA PCI
Continue aspirin, Brilinta
Blood pressures improving off nitro. Resume outpatient Norvasc, Coreg, losartan/HCTZ
increased crestor. continue zetia MWF
cardiac rehab
OP follow up with Dr. Bautista arranged
plan for DC to home today
Impression / Plan
-
PCP:Elizabeth Rowell
Primary custom grinder: Jadgish Bautista
Impression:
Presentation with CP
NSTEMI
CAD status post RCA PCI 2017
Hyperglycemia
Hypertension
Hyperlipidemia
Obstructive sleep apnea
Remote pulmonary embolus
Previous cardiovascular testing:
Left heart cath 10/19/2017 at [facility]:
PCI with GUSTABO to mid to distal RCA, reducing stenosis from 90% to 0%. 50 to 60% disease in RCA.
LAD 50% proximal to mid stenosis
D2 70% stenosis
Mild disease in other areas
Normal LVEDP
Exercise nuclear stress test 08/29/2024 that showed normal myocardial perfusion scan with normal wall motion, EF 63%, exercised 9 minutes on Ok protocol.
Echo 09/10/2024: Normal LV/RV function, LVEF 60%, borderline LVH, mild AI trivial TR with mild increase in RV systolic pressure.
Plan:
- Patient presented with chest discomfort and ruled in for NSTEMI with peak trop 0.035.
- s/p cath resulting in RCA PCI 04/23/25. he was noted to have residual 60% LAD disease. could consider for stress testing in OP setting if with recurrent symptoms
- continue asa, brilinta
- patient was continued on IV nitro gtt overnight, and BPs low this morning. IV nitro stopped. patient chest pain free. BPs improving. if continue to improve, will give AM meds (coreg, losartan/HCTZ, norvasc).
- He has obstructive sleep apnea and uses CPAP at home normally. He did not bring it into the hospital. He is noted to have nocturnal bradycardia. reports Dr. Bautista had been decreasing his Coreg dosing due to bradycardia and he had been taking
Coreg 3.125 mg daily as outpatient due to this
- In sinus rhythm/sinus bradycardia on review of telemetry overnight, however no pauses noted.
- Echocardiogram with preserved EF and no significant valvular disease. Results reviewed with patient and at bedside
- LDL 78. Increase Crestor dose to 20 mg every afternoon. Continue Zetia, on Tuesday dosing, may need to uptitrate
- Ambulate
- cardiac rehab
- okay for discharge to home later today if blood pressure stable
- outpatient cardiac follow-up with Dr. Bautista arranged
- Discussed with nursing, patient and at bedside
PREADMIT DATA:
69-year-old male with PMH HTN, hyperlipidemia, prediabetes, CAD status post PCI with GUSTABO to the mid to distal RCA in September 2017 with residual small branch vessel coronary artery disease, sleep apnea on CPAP, appendectomy complicated by postop PE
2004, diverticulosis presents to ED today with 2-week history of exertional left-sided chest pain resolved with rest, sometimes radiates to left shoulder, no associated symptoms Today after walk he had pain that did not resolve with rest and took 2
sublingual nitroglycerin and presented to [facility].
Currently having 2-3 out of 10 chest pain. Initial troponin 0.03
Progress Note - House Piping Inspector
Subjective
Date of Service: April 24, 2025
Denies chest pain or shortness of breath overnight
Objective
Labs:
04/24/25 04:06
04/23/25 03:54
Labs
Hgb 13.4 g/dL (13.0-18.0) 04/24/25 04:06
Hct 38.5 % (39.0-52.0) L 04/24/25 04:06
Plt Count 221 10^3/uL (130-400) 04/24/25 04:06
APTT Cancelled 04/23/25 18:50
Sodium 140 mmol/L (135-145) 04/23/25 03:54
Potassium 4.2 mmol/L (3.5-5.1) 04/23/25 03:54
BUN 17 mg/dl (9-20) 04/23/25 03:54
Creatinine 1.0 mg/dL (0.7-1.3) 04/23/25 03:54
Glucose 100 mg/dl (70-99) H 04/23/25 03:54
Troponins
04/22/25 04/22/25 04/22/25
13:28 16:33 22:38
Troponin I 0.030 0.035 H* 0.036 H*
04/23/25 04/23/25
03:54 10:30
Troponin I 0.033 Cancelled
Vital Signs and I&O:
Vital Signs
Temp Pulse Resp BP Pulse Ox
98.6 F 56 20 102/69 92
04/24/25 06:53 04/24/25 07:30 04/24/25 06:53 04/24/25 07:30 04/24/25 06:53
Vital Signs
Temp Pulse Resp BP Pulse Ox
98.6 F 56 20 102/69 92
04/24/25 06:53 04/24/25 07:30 04/24/25 06:53 04/24/25 07:30 04/24/25 06:53
Intake & Output
04/22/25 04/23/25 04/24/25 04/25/25
07:59 07:59 07:59 07:59
Intake Total
Balance
Physical Exam
Physical Exam
GEN: No distress, awake, alert, oriented x3
HEENT: supple, anicteric, mmm, EOMI
LUNGS: CTA bilaterally, no wheezes/rales
CV: Reg, S1/S2, no murmur
ABD: soft, BS+, NT/ND
EXT: No cyanosis, clubbing, edema
NEURO: Gross non-focal
SKIN: Warm, pink, dry. No rash. Right wrist site clean dry and intact
--- NOTE | 2025-04-24 10:09 | W.PN.UPDATE ---
Update Note
Progress Note Update
To be clear, pt states he had some blurry visions with NTG gtt started in the ER and none since. Currently the pt denies headache or any visual disturbances. Previously the pt refused CT brain. Based on this history no indication for CT brain at
this time as blurry vision was likely due to BP changes with NTG gtt.
--- NOTE | 2025-04-24 10:26 | CM ---
Reviewed chart. Met with and Mrs. Ko to review discharge plans. He states he is feeling well and maybe able to go home soon. He states prior to admission he resides with his spouse in a three story home with three steps to enter the home
form the front. He states if he goes in through the garage he has a full flight of steps to get into the home. He states he has a full flight of steps to get to bedroom/full bathroom. He states he has a powder room on the first floor. He states
prior to admission he was independent with ambulation and adls. He states he has a CPAP Machine at home. He states he has a prescription plan and uses [facility]. Telephone call to [facility] to check if Ticagrelor 90 mg is in stock. [facility] states they will have the script ready today. Co pay is $6.75. Reviewed co-pay with him. He is agreeable to the co-pay. Medical work-up in progress. The discharge plan is to return home with his spouse when medically stable.
--- NOTE | 2025-04-24 10:28 | PTCARENOTE ---
Pt is AOx3, no complaints of pain or discomfort. Nitro gtt stopped per orders. SR on tele monitor, VSS. Plan for discharge later today. Call alexander within reach.
--- NOTE | 2025-04-24 11:54 | W.DCSUMMARY ---
Discharge Summary
Discharge Data
Date of Admission: 04/22/25
Date of Discharge: 04/24/25
-
Pending Results: No
Hospital Course
Primary diagnoses:
Acute non-ST elevation myocardial infarction
Secondary diagnoses:
Prediabetes
Essential hypertension
Hyperlipidemia
Obstructive sleep apnea
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
Consultants:
Cardiology
Imaging:
Cardiac cath 04/23:
1. Successful percutaneous coronary artery intervention of LAD heavily calcified 90% mid RCA stenosis with one 3.0 x 30 mm [employer]onic [place] frontier drug-eluting stent, postdilated using IVUS guidance with a 3.5 mm NC balloon at high pressures with an
excellent angiographic and IVUS based result.
2. LVEDP of 12 mmHg.
Echo:
1. Normal left ventricular size and systolic function without regional wall motion abnormalities. Estimated left ventricular ejection fraction of 61% by Olmstead's method.
2. Normal right ventricular size and systolic function.
3. No significant valvular abnormalities.
4. No pericardial effusion.
5. Compared to prior echocardiogram from September 10, 2024, no significant changes.
Hospital course: 69-year-old male presented with chief complaint of chest pain as on H&P done on admission. The patient was initiated on heparin and nitroglycerin drips. His troponin peaked at 0.036. The patient had a cardiac cath as above, LAD
GUSTABO placed. He was placed on ASA/BB/statin/Brilinta. He was discharged in medically stable condition.
Discharge Plan
-
Patient Disposition: Home (Routine Discharge)
Discharge Diagnosis/Procedures: NSTEMI, stent to LAD
Condition: Good
Diet: Low Cholesterol and Low Sodium
Activity: As tolerated
Driving Restrictions: No driving for 24 hours
Activity Restrictions/Additional Instructions:
Please call to make appointments for Phase II Cardiac Rehab:
1) [facility]: [phone]
2) [facility]: [phone]
3) [facility]: [phone]
Stand Alone Forms: DC Instructions- Cath/EP Lab
Referrals:
Jagdish Bautista MD [Active, Cardiology] - 05/08/25 3:40 pm
Referral Note: You have a cardiology follow-up appointment with Dr. Bautista's SPORTS COORDINATOR, Lexis. Please call with questions
Elizabeth Rowell MD [Family Provider, Family Practice]
Prescriptions:
New
rosuvastatin 20 mg Tablet
20 mg PO QPM Qty: 30 0RF
ticagrelor 90 mg Tablet
90 mg PO BID Qty: 60 0RF
Continued
aspirin 81 mg Tablet,Delayed Release (Dr/Ec)
81 mg PO DAILY
carvedilol [Coreg] 3.125 mg Tablet
3.125 mg PO BID
amlodipine [Norvasc] 10 mg Tablet
10 mg PO DAILY
nitroglycerin [Nitrostat] 0.4 mg Tablet, Sublingual
0.4 mg SUBLINGUAL [id number] PRN (Reason: chest pains)
losartan-hydrochlorothiazide 100-12.5 mg Tablet
1 tab PO DAILY
ezetimibe 10 mg tablet
10 mg PO MOWEFR
Discontinued
rosuvastatin [Crestor] 5 mg Tablet
5 mg PO QPM
Discharge Orders:
Discharge Patient (As Directed); Ordered 04/24/25
Ordered By: Oni Mckeon
Care Plan Goals
Care Plan Goals:
Problem: Readiness for enhanced knowledge related to diagnosis and treatment plan
Goal: Understand your diagnosis and treatment plan needs, including medications if applicable.
Instructions: Know your diagnosis, underlying causes and treatment plan options, including medications if applicable. Consult with your health care team to learn about your diagnosis and treatment plan, including medications if applicable.
Discharge Date and Time
Print Language: AUSTRALIAN
== END 2025-04-24 14:00 | disposition home or self-care (01) | DRG 322 ==
LOC: IVU 18:01
PROVIDERS: Emergency Medicine; Internal Medicine Interventional Cardiology; Physician Assistant; Physician Assistant Medical; ADMITTING PHYSICIAN Internal Medicine; ATTENDING PHYSICIAN Internal Medicine; CONSULT PHYSICIAN Internal Medicine Cardiovascular Disease; EMERGENCY PHYSICIAN Emergency Medicine; FAMILY PHYSICIAN Family Medicine
PROC: 4A023N7 Measurement of Cardiac Sampling and Pressure, Left Heart, Percutaneous Approach (ICD-10-PCS; 2025-04-23)
PROC: 027034Z Dilation of Coronary Artery, One Artery with Drug-eluting Intraluminal Device, Percutaneous Approach (ICD-10-PCS; 2025-04-23)
PROC: B2111ZZ Fluoroscopy of Multiple Coronary Arteries using Low Osmolar Contrast (ICD-10-PCS; 2025-04-23)
PROC: B240ZZ3 Ultrasonography of Single Coronary Artery, Intravascular (ICD-10-PCS; 2025-04-23)
DX: I21.4 Non-ST elevation (NSTEMI) myocardial infarction (principal); G47.33 Obstructive sleep apnea (adult) (pediatric); I10 Essential (primary) hypertension; M19.012 Primary osteoarthritis, left shoulder; I25.110 Atherosclerotic heart disease of native coronary artery with unstable angina pectoris; E66.811 Obesity, class 1; E78.5 Hyperlipidemia, unspecified; R73.9 Hyperglycemia, unspecified; R73.03 Prediabetes; Z86.711 Personal history of pulmonary embolism; Z95.5 Presence of coronary angioplasty implant and graft; Z87.19 Personal history of other diseases of the digestive system; Z68.33 Body mass index [BMI] 33.0-33.9, adult; Z79.82 Long term (current) use of aspirin
CPT/HCPCS: 71045; 80048; 80053; 80061; 82962; 83036; 84484; 85025; 85027; 85730; 93005; 93306; 96374; 96375; 99291

== ENCOUNTER 2025-05-09 14:47 | Emergency (ER) | payer BC, SELFPAY ==
[2025-05-09 14:50] VITALS: BP 131/81
[2025-05-09 15:12] LABS: Hematocrit 46.5 % (39.0-52.0); Hemoglobin 15.1 g/dL (13.0-18.0); Mean Corp Hgb Conc. 32.5 g/dL (33.0-37.0); Mean Corpuscular Volume 88.1 fL (80.0-94.0); Nucleated Red Blood Cells % 0 % (-); Platelet Count 276 10^3/uL (130-400); Red Cell Dist. Width 13.2 % (11.5-14.5)
[2025-05-09 15:28] LABS: ALT (SGPT) 42 U/L (0-50); AST (SGOT) 26 U/L (17-59); Albumin 4.8 g/dl (3.5-5.0); Alkaline Phosphatase 45 U/L (38-126); Blood Urea Nitrogen 17 mg/dl (9-20); Calcium 9.5 mg/dl (8.4-10.2); Carbon Dioxide 27 mmol/L (22-30); Chloride 103 mmol/L (98-107); Glucose 122 mg/dl (70-99); Potassium 4.4 mmol/L (3.5-5.1); Sodium 136 mmol/L (135-145); Total Protein 7.9 g/dl (6.3-8.2); eGFR > 60.00
[2025-05-09 15:34] LABS: Troponin I < 0.012 ng/ml
[2025-05-09 16:32] VITALS: BP 129/81
[2025-05-09 17:00] VITALS: BP 106/64
--- NOTE | 2025-05-09 17:29 | CON.CAR ---
Consultation
Consultation Request
Date/Time Consultation Requested: 05/09/25 4:45pm
Date/Time Consultation Performed: 05/09/25 5:15pm
Requesting Provider: Dr Shipley
Performing Provider: DR galarza
Reason for Consultation: chest pain
Medical History
-
Chief Complaint: chest pains
History of Present Illness:
69-year-old male with past medical history of recent RCA PCI 2 weeks ago, hypertension, hyperlipidemia, obstructive sleep apnea, remote pulmonary embolism presents with neck fullness and chest aches. The patient was overall doing okay when this
morning he felt a fullness in his head and neck. His blood pressure was elevated. He had no symptoms at that time but then intermittently continued to have atypical left sided chest aching. It was mild. It did not radiate. He had no associated
shortness of breath or sweats. He has had continued intermittent on and off pain prior to his stent and after his stent. He is currently pain-free. His blood pressure is currently stable and his heart rates are in the 60s.
Past Medical History
Past Medical History: CAD (RCA PCI April 23, 2025 with residual 60% LAD), HTN, Hypercholesterolemia and Other (Obstructive sleep apnea, remote pulmonary embolism)
Past Surgical History: Orthopedic
Social History
Tobacco: Non-Smoker
Alcohol: Occasional
Personal:
Living: With Family
Employment: Retired
Family History
Family History: Hypertension
Allergies / Home Medications
Allergy/AdvReac Type Severity Reaction Status Date / Time
No Known Allergies Allergy Verified 05/09/25 14:52
�Medication �Instructions �Recorded �Confirmed �Type
amlodipine 10 mg tablet (Norvasc) 10 mg PO DAILY Blood Pressure 04/22/25 04/22/25 History
aspirin 81 mg tablet,delayed 81 mg PO DAILY Blood Clot 04/22/25 04/22/25 History
release Prevention/Tx
carvedilol 3.125 mg tablet (Coreg) 3.125 mg PO BID Blood Pressure 04/22/25 04/22/25 History
ezetimibe 10 mg tablet 10 mg PO MOWEFR High Cholesterol 04/22/25 04/22/25 History
losartan 100 1 tab PO DAILY Blood Pressure 04/22/25 04/22/25 History
mg-hydrochlorothiazide 12.5 mg
tablet
nitroglycerin 0.4 mg sublingual 0.4 mg sublingual [id number] PRN 04/22/25 04/22/25 History
tablet (Nitrostat) chest pains
rosuvastatin 20 mg tablet 20 mg PO QPM #30 tabs 04/24/25 Rx
ticagrelor 90 mg tablet 90 mg PO BID #60 tabs 04/24/25 Rx
Review of Systems
-
History Source: Patient and Family
Constitutional: Fatigue
EENT: No Symptoms
Respiratory: No Symptoms
Cardiac: Chest Pain
Abdomen/GI: No Symptoms
: No Symptoms
Musculoskeletal: No Symptoms
Skin: No Symptoms
Neurological: No Symptoms
Endocrine: No Symptoms
Hematologic/Lymphatic: No Symptoms
Physical Exam
Vital Signs
Temp Pulse Resp BP Pulse Ox
98.3 F 69 23 106/64 95
05/09/25 14:50 05/09/25 17:15 05/09/25 17:15 05/09/25 17:00 05/09/25 17:15
Lab Results
05/09/25 14:59
05/09/25 14:59
Troponin I < 0.012 ng/ml 05/09/25 14:59
Physical Exam
General: Well Developed, Well Nourished and No Apparent Distress
HEENT: Normocephalic and Anicteric
Respiratory: Clear and Non Labored Respirations
Cardiac: S1/S2 and Regular Rhythm
GI: Soft, Non Tender and Non Distended
Musculoskeletal: No Clubbing and No Edema
Skin: Warm and Dry
Neuro: AO x 3
Psych: Calm
Impression / Plan
-
PCP:Elizabeth Rowell
Primary agency sales representative: Jagdish Bautista
Impression:
Atypical chest pain
CAD status post RCA PCI 2017
Hyperglycemia
Hypertension
Hyperlipidemia
Obstructive sleep apnea
Remote pulmonary embolus
Exercise nuclear stress test 08/29/2024 that showed normal myocardial perfusion scan with normal wall motion, EF 63%, exercised 9 minutes on Ok protocol.
Echo 09/10/2024: Normal LV/RV function, LVEF 60%, borderline LVH, mild AI trivial TR with mild increase in RV systolic pressure.
Echo 04/23/25: EF 61%, no significant valve disease, no pericardial effusion
Plan:
- Patient presents with atypical symptoms including chest aches and neck fullness. These pains have persisted pre and post PCI.
- s/p cath resulting in RCA PCI 04/23/25. he was noted to have residual 60% LAD disease.
- Cardiac troponin negative x 1. Will repeat troponin.
- continue asa, brilinta
- EKG overall stable with sinus rhythm with nonspecific T wave abnormalities.
-His blood pressure is currently well-controlled with heart rates of 60bpm
- I had a lengthy discussion with him and his . If his second troponin is negative okay to follow-up as an outpatient to consider repeat stress testing to look for ischemia in the LAD distribution. For now we will continue medical therapy for
his coronary disease. He will continue the carvedilol 3.125 mg twice daily, amlodipine 10 mg daily and losartan.
- We discussed increasing his carvedilol or adding Imdur but he prefers to hold off for now.
-We will discuss his case with Dr. Bautista as an outpatient assuming troponins are normal.
Data Reviewed
-
EKG: Report Reviewed by me
Radiology: Report Reviewed by me
Medical Tests (Nuc Med, Echo etc): Report Reviewed by me
Labs: Labs Reviewed by me
Old Records: Reviewed
--- NOTE | 2025-05-09 17:34 | ED.GENMED ---
History of Present Illness
General
Chief Complaint: Cardiac Symptoms
Source: patient
Exam Limitations: none
Time Seen by Provider: 05/09/25 16:30
History of Present Illness
History of Present Illness:
69-year-old male this morning felt his blood pressure was elevated with some headache. Checked his blood pressure which was 160s over 90s. This was followed by vague chest tightness late in the morning. Also has a localized area of anterior chest
pain that he gets frequently almost on a daily basis. This may even have preceded his cardiac catheterization. The symptoms are nonexertional. No pleuritic pain no nausea. At times mild shortness of breath with this. He is unsure whether this
is similar to his previous cardiac issues. He had a cardiac stent done recently RCA with shockwave therapy. He is currently on Brilinta and aspirin.
Past History
Past History
ED Past Medical History: CAD, GERD, HTN and Hypercholesterolemia
ED Past Surgical History: Appendectomy, Cardiac, Orthopedic and Other (Hernia. Nasal surgery)
Phy Exam
Physical Exam
Physical Exam:
GENERAL: Alert and oriented in no apparent distress
EYE: Orbits normal.
NECK: Supple, no significant adenopathy.
ENT: Pharynx without erythema
CARDIAC: Regular rate and rhythm without any obvious murmurs.
LUNGS: Clear breath sounds,normal
ABDOMEN: Soft, without focal tenderness or distention
NEUROLOGICAL: Alert and oriented , grossly non-focal
SKIN: Warm and dry, no rash or lesion, no discoloration, skin intact.
MUSCULOSKELETAL: No edema,no deformity.Good color
PSYCH: Normal and appropriate interaction.
Course
Orders/Labs/Results
Orders:
Orders
05/09/25 14:49
Electrocardiogram (*1) Urgent
Reason for Study: Chest Pain
EKG- Treatment ONCE
05/09/25 14:59
Complete Blood Count/With Diff Urgent
Comprehensive Metabolic Panel Urgent
Troponin I Urgent
05/09/25 17:38
Electrocardiogram (*1) Stat
Reason for Study: Other
Other Reason for Exam: chest pain
EKG- Treatment ONCE
05/09/25 17:44
Troponin I Urgent
Abnormal Lab Results
05/09/25
14:59
MCHC 32.5 L g/dL
(33.0-37.0)
Lymphocytes % 19.8 L %
(20.5-51.1)
Glucose 122 H mg/dl
(70-99)
05/09/25 14:59
05/09/25 14:59
Vital Signs
Initial and Last Documented VS:
Initial Vital Signs
Temp Pulse Resp BP Pulse Ox
98.3 F 68 16 131/81 98
05/09/25 14:50 05/09/25 14:50 05/09/25 14:50 05/09/25 14:50 05/09/25 14:50
Last Documented Vital Signs
Temp Pulse Resp BP Pulse Ox
98.3 F 63 19 121/81 97
05/09/25 14:50 05/09/25 18:30 05/09/25 18:30 05/09/25 18:00 05/09/25 18:30
MDM/Problems Addressed
Differential Diagnosis Includes:
Nonspecific nonexertional chest symptoms. Recent cardiac stent. My gut feeling is relatively low that this is an acute cardiac issue however warrants cardiac evaluation. Seen by cardiology. Second troponin and EKG and a full stable will
follow-up closely with cardiology. No other serious etiology expected. Nothing to describe PE pneumonia pneumothorax. Abdomen is benign.
*Pulse Oximetry
SaO2: 95
Oxygen Mode of Delivery: Room air
Patient hypoxic: no
*EKG
Interpreted by ED Provider?: Yes
Interpretation: normal
Comparison EKG: no changes
Heart Rate: 62
Rate: normal
Rhythm: sinus
[place]: normal axis
Interval: normal interval
QRS Pattern: normal QRS
Ischemia: other (Chronic mild ST elevation with T wave inversions 2 3 and F. Nonspecific lateral changes)
*Critical Care Note
Total Time (30-74mins, 75-104mins- exclusive of procedures): Not Applicable
Data Reviewed
Review of Other/Old Records Reveals: Labs and Testing
Update Note
Update Note:
Patient has remained stable. Seen by cardiology. Discharged to follow-up
ED Attending Note
-
Portions of this chart may have been created with voice recognition software.� Occasional wrong word or��sound alike� substitutions may have occurred due to the inherent limitations of voice recognition software.
Discharge Plan
Departure
Patient Disposition: Home (Routine Discharge)
Date of Disposition: 05/09/25
Time of Disposition: 19:22
Patient with high blood pressure during this ER visit?: Yes
Discharge Problem:
Chest pain, Recent stent
Instructions: Chest Pain (DC), BLOOD PRESSURE
Prescriptions:
No Action
aspirin 81 mg Tablet,Delayed Release (Dr/Ec)
81 mg PO DAILY
carvedilol [Coreg] 3.125 mg Tablet
3.125 mg PO BID
amlodipine [Norvasc] 10 mg Tablet
10 mg PO DAILY
nitroglycerin [Nitrostat] 0.4 mg Tablet, Sublingual
0.4 mg SUBLINGUAL [id number] PRN (Reason: chest pains)
losartan-hydrochlorothiazide 100-12.5 mg Tablet
1 tab PO DAILY
ezetimibe 10 mg tablet
10 mg PO MOWEFR
rosuvastatin 20 mg Tablet
20 mg PO QPM Qty: 30 0RF
ticagrelor 90 mg Tablet
90 mg PO BID Qty: 60 0RF
Referrals:
UNKNOWN - PT DOES,NOT KNOW [Unknown Provider]
Activity Restrictions/Additional Instructions:
Call your finisher merchant products first thing tomorrow morning for close follow-up
Return with any recurring episodes
Interventions
Interventions:
*Risk Screen - Suicide Last Done: 05/09/25 14:50
*General Assessment Last Done: 05/09/25 16:30
*Neglect/Abuse Screening Last Done: 05/09/25 14:50
*ED- Fall Risk Assessment Last Done: 05/09/25 16:30
*ED COVID-19 Vaccine History Last Done: 05/09/25 16:30
*ED Influenza Vaccine History Last Done: 05/09/25 16:30
ED- Pulmonary Assessment Last Done: 05/09/25 16:30
ED- Cardiac Assessment Last Done: 05/09/25 16:30
Discharge Date and Time
Print Language: MOROCC[place]
[2025-05-09 18:00] VITALS: BP 121/81
[2025-05-09 18:36] LABS: Troponin I < 0.012 ng/ml
[2025-05-09 19:00] VITALS: BP 119/90
== END 2025-05-09 19:50 | disposition home or self-care (01) ==
LOC: EMR 14:47
PROVIDERS: Emergency Medicine; EMERGENCY PHYSICIAN Emergency Medicine; FAMILY PHYSICIAN Family Medicine
DX: R07.9 Chest pain, unspecified (principal); Z95.5 Presence of coronary angioplasty implant and graft; I25.10 Atherosclerotic heart disease of native coronary artery without angina pectoris; I10 Essential (primary) hypertension; E78.00 Pure hypercholesterolemia, unspecified; G47.33 Obstructive sleep apnea (adult) (pediatric); K21.9 Gastro-esophageal reflux disease without esophagitis; Z79.02 Long term (current) use of antithrombotics/antiplatelets; Z79.82 Long term (current) use of aspirin; Z86.711 Personal history of pulmonary embolism; Z82.49 Family history of ischemic heart disease and other diseases of the circulatory system; Z83.49 Family history of other endocrine, nutritional and metabolic diseases
CPT/HCPCS: 99284; 80053; 84484; 85025; 93005